=== PATIENT | male | born 1960 | race Caucasian/White ===

== ENCOUNTER 2019-06-15 16:11 | Inpatient (IN) | payer OTHER ==
[2019-06-15] MEDS ORDERED: Albuterol 8 GM Inhaler INH ONE (16:56)
--- NOTE | 2019-06-15 17:02 | EDM.PDOC ---
ED HPI GENERAL MEDICAL PROBLEM - General Chief Complaint: Respiratory Problem Stated Complaint: SOB Time Seen by Provider: 06/15/19 16:58 Source of Information: Reports: Patient History Limitations: Reports: No Limitations - History of Present Illness INITIAL COMMENTS - FREE TEXT/NARRATIVE: Presents with cough and SOB x 1 week. He has been sleeping in a recliner x 1 week, he is unable lay flat due to SOB. Denies any prior significant medical history. He is a non-smoker. Denies fever, chest pain, or known exposure to COVID-19. He had a Telemedicine appointment on 06/12/19 and was prescribed Doxycycline, Guaifenesin, and Flonase w/o improvement. He had similar symptoms in April 2019, resolved, then recurred @1 week ago. Duration: Week(s): (1) Severity: Moderate Worsens with: Reports: Other (exertion) - Related Data Allergies Allergy/AdvReac Type Severity Reaction Status Date / Time No Known Allergies Allergy Verified 06/15/19 16:45 Past Medical History - Past Health History Medical/Surgical History: Denies Medical/Surgical History Social & Family History - Tobacco Use Smoking Status *Q: Never Smoker ED ROS GENERAL - Review of Systems Review Of Systems: Comprehensive ROS is negative, except as noted in HPI. Respiratory: Reports: Shortness of Breath Cardiovascular: Reports: Orthopnea, PND ED EXAM, GENERAL - Physical Exam Exam: See Below Exam Limited By: No Limitations General Appearance: Alert, WD/WN, No Apparent Distress Throat/Mouth: No Airway Compromise Head: Atraumatic, Normocephalic Neck: Full Range of Motion Respiratory/Chest: No Respiratory Distress, Lungs Clear, Normal Breath Sounds Cardiovascular: Regular Rate, Rhythm, No Murmur Extremities: Normal Range of Motion, Non-Tender, Pedal Edema Neurological: Alert, Normal Cognition Psychiatric: Normal Affect, Normal Mood Skin Exam: Warm, Dry, Intact EKG INTERPRETATION EKG Date: 06/15/19 Time: 17:17 Rhythm: NSR Rate (Beats/Min): 87 [place]: Normal P-Wave: Present QRS: Normal ST-T: Normal QT: Normal Course - Vital Signs Last Recorded V/S: Last Vital Signs Temp 36.5 C 06/15/19 16:26 Pulse 96 06/15/19 16:26 Resp 18 06/15/19 16:26 BP 137/82 06/15/19 16:26 Pulse Ox 93 L 06/15/19 16:26 - Orders/Labs/Meds Orders: Active Orders 24 hr Category Date Time Status EKG Documentation Completion [RC] ASDIRECTED Care 06/15/19 16:55 Active RT Post Treatment Assessment [RC] Click to Edit Care 06/15/19 16:57 Active CXR [Chest 1V Frontal] [CR] Stat Exams 06/15/19 16:58 Taken CORONAVIRUS COVID-19, ZURDO Stat Lab 06/15/19 17:08 Received INPATIENT Stat Lab 06/15/19 17:08 Received Sodium Chloride 0.9% [Saline Flush] Med 06/15/19 16:56 Active 10 ml FLUSH ASDIRECTED PRN Isolation [COMM] Routine Oth 06/15/19 16:54 Ordered Saline Lock Insert [OM.PC] Routine Oth 06/15/19 16:56 Ordered EKG 12 Lead [EK] Stat Ther 06/15/19 16:54 Ordered Medication Orders Sodium Chloride (Saline Flush) 10 ml FLUSH ASDIRECTED PRN PRN Reason: Keep Vein Open Labs: Laboratory Tests 06/15/19 06/15/19 06/15/19 Range/Units 17:05 17:05 17:05 WBC 9.2 (4.5-12.0) X10-3/uL RBC 5.32 (4.30-5.75) x10(6)uL Hgb 14.2 (13.5-17.8) g/dL Hct 43.4 (30.0-51.3) % MCV 81.7 (80-96) fL MCH 26.7 L (27.7-33.6) pg MCHC 32.7 (32.2-35.4) g/dL RDW 14.6 (11.5-15.5) % Plt Count 239 (125-369) X10(3)uL MPV 8.8 (7.4-10.4) fL Neut % (Auto) 77.2 (46-82) % Lymph % (Auto) 14.7 (13-37) % [place] % (Auto) 5.9 (4-12) % Eos % (Auto) 2 (1.0-5.0) % Baso % (Auto) 1 (0-2) % Neut # (Auto) 7.2 (1.6-8.3) # Lymph # (Auto) 1.3 (0.6-5.0) # [place] # (Auto) 0.5 (0.0-1.3) # Eos # (Auto) 0.1 (0.0-0.8) # Baso # (Auto) 0.1 (0.0-0.2) # PT 10.9 (9.0-11.1) sec INR 1.01 (1.00-1.24) APTT 26.5 (24.4-33.2) SECONDS D-Dimer, Quantitative 0.45 (0.0-0.59) mg/LFEU Sodium 141 (135-145) mmol/L Potassium 4.1 (3.5-5.3) mmol/L Chloride 103 (100-110) mmol/L Carbon Dioxide 31 (21-32) mmol/L BUN 18 (7-18) mg/dL Creatinine 1.0 (0.70-1.30) mg/dL Est Cr Clr Drug Dosing TNP Estimated GFR (MDRD) > 60 (>60) BUN/Creatinine Ratio 18.0 (9-20) Glucose 101 (80-116) mg/dL Calcium 8.5 L (8.6-10.2) mg/dL Total Bilirubin 0.6 (0.1-1.3) mg/dL AST 32 H (5-25) IU/L ALT 58 H (12-36) U/L Alkaline Phosphatase 101 (56-112) IU/L Troponin I (4.0-60.3) pg/mL NT-Pro-B Natriuret Pep (<=125) pg/mL Total Protein 7.4 (6.0-8.0) g/dL Albumin 3.9 (3.2-4.6) g/dL Globulin 3.5 g/dL Albumin/Globulin Ratio 1.1 TSH, Ultra Sensitive (0.36-3.74) IU/mL 06/15/19 06/15/19 Range/Units 17:05 17:05 WBC (4.5-12.0) X10-3/uL RBC (4.30-5.75) x10(6)uL Hgb (13.5-17.8) g/dL Hct (30.0-51.3) % MCV (80-96) fL MCH (27.7-33.6) pg MCHC (32.2-35.4) g/dL RDW (11.5-15.5) % Plt Count (125-369) X10(3)uL MPV (7.4-10.4) fL Neut % (Auto) (46-82) % Lymph % (Auto) (13-37) % [place] % (Auto) (4-12) % Eos % (Auto) (1.0-5.0) % Baso % (Auto) (0-2) % Neut # (Auto) (1.6-8.3) # Lymph # (Auto) (0.6-5.0) # [place] # (Auto) (0.0-1.3) # Eos # (Auto) (0.0-0.8) # Baso # (Auto) (0.0-0.2) # PT (9.0-11.1) sec INR (1.00-1.24) APTT (24.4-33.2) SECONDS D-Dimer, Quantitative (0.0-0.59) mg/LFEU Sodium (135-145) mmol/L Potassium (3.5-5.3) mmol/L Chloride (100-110) mmol/L Carbon Dioxide (21-32) mmol/L BUN (7-18) mg/dL Creatinine (0.70-1.30) mg/dL Est Cr Clr Drug Dosing Estimated GFR (MDRD) (>60) BUN/Creatinine Ratio (9-20) Glucose (80-116) mg/dL Calcium (8.6-10.2) mg/dL Total Bilirubin (0.1-1.3) mg/dL AST (5-25) IU/L ALT (12-36) U/L Alkaline Phosphatase (56-112) IU/L Troponin I 18.4 (4.0-60.3) pg/mL NT-Pro-B Natriuret Pep 627 H (<=125) pg/mL Total Protein (6.0-8.0) g/dL Albumin (3.2-4.6) g/dL Globulin g/dL Albumin/Globulin Ratio TSH, Ultra Sensitive 1.15 (0.36-3.74) IU/mL Meds: Medications Generic Name Dose Route Start Last Admin Trade Name Freq PRN Reason Stop Dose Admin Sodium Chloride 10 ml 06/15/19 16:56 Saline Flush FLUSH ASDIRECTED PRN Keep Vein Open Discontinued Medications Generic Name Dose Route Start Last Admin Trade Name Freq PRN Reason Stop Dose Admin Albuterol 0 gm 06/15/19 16:56 06/15/19 17:45 Ventolin Hfa INH 06/15/19 16:57 2 puff ONETIME ONE Administration Furosemide 40 mg 06/15/19 18:00 Lasix IVPUSH 06/15/19 18:01 NOW ONE - Radiology Interpretation Free Text/Narrative:: CXR (AP portable): Allowing for the the patient body habitus and technique, the lungs are probably clear. Enlargement of the cardiomediastinal silhouette. Elevation of the left hemidiaphragm. (Dr. Joe Hudson) - Re-Assessments/Exams Free Text/Narrative Re-Assessment/Exam: 06/15/19 18:20 Sa02 91-92% RA at rest. Departure - Departure Time of Disposition: 18:19 Disposition: Admitted As Inpatient 64 Condition: Fair Clinical Impression: New onset of congestive heart failure - Discharge Information *PRESCRIPTION DRUG MONITORING PROGRAM REVIEWED*: No *COPY OF PRESCRIPTION DRUG MONITORING REPORT IN PATIENT JERAMIE: Not Applicable Referrals: Nancy Cristina BLADE BONER [Primary Care Provider] - Forms: ED Department Discharge Sepsis Event Note - Evaluation Sepsis Screening Result: No Definite Risk - Focused Exam Vital Signs: Vital Signs Temp Pulse Resp BP Pulse Ox 06/15/19 16:26 36.5 C 96 18 137/82 93 L Date Exam was Performed: 06/15/19 Time Exam was Performed: 18:14 - My Orders Last 24 Hours: My Active Orders 06/15/19 16:54 Isolation [COMM] Routine EKG 12 Lead [EK] Stat 06/15/19 16:55 EKG Documentation Completion [RC] ASDIRECTED 06/15/19 16:56 Sodium Chloride 0.9% [Saline Flush] 10 ml FLUSH ASDIRECTED PRN Saline Lock Insert [OM.PC] Routine 06/15/19 16:57 RT Post Treatment Assessment [RC] Click to Edit 06/15/19 16:58 CXR [Chest 1V Frontal] [CR] Stat 06/15/19 17:08 CORONAVIRUS COVID-19, ZURDO Stat INPATIENT Stat - Assessment/Plan Last 24 Hours: My Active Orders 06/15/19 16:54 Isolation [COMM] Routine EKG 12 Lead [EK] Stat 06/15/19 16:55 EKG Documentation Completion [RC] ASDIRECTED 06/15/19 16:56 Sodium Chloride 0.9% [Saline Flush] 10 ml FLUSH ASDIRECTED PRN Saline Lock Insert [OM.PC] Routine 06/15/19 16:57 RT Post Treatment Assessment [RC] Click to Edit 06/15/19 16:58 CXR [Chest 1V Frontal] [CR] Stat 06/15/19 17:08 CORONAVIRUS COVID-19, ZURDO Stat INPATIENT Stat
[2019-06-15] MEDS ORDERED: Furosemide 40 MG/4 ML VIAL IVPUSH ONE (18:00)
[2019-06-15] MEDS: Sodium Chloride 0.9% 10 ML Syringe FLUSH PRN (18:13)
[2019-06-15] MEDS ORDERED: Albuterol 8 GM Inhaler INH PRN (18:51)
[2019-06-15] MEDS: Enoxaparin 40 MG/0.4 ML Syringe SUBCUT SCH (20:02)
[2019-06-15] MEDS: Lisinopril 2.5 MG Tab PO SCH (21:02)
[2019-06-16] MEDS ORDERED: Furosemide 40 MG/4 ML VIAL IVPUSH SCH (09:00)
[2019-06-16] MEDS: Sodium Chloride 0.9% 10 ML Syringe FLUSH PRN ×2 (09:24→18:26)
[2019-06-16] MEDS: Lisinopril 2.5 MG Tab PO SCH (09:24)
--- NOTE | 2019-06-16 09:26 | PCM.HP.2 ---
H&P History of Present Illness - General Date of Service: 06/16/19 Admit Problem/Dx: Admission Diagnosis/Problem Admission Diagnosis/Problem CHF, Congestive heart failure Source of Information: Patient History Limitations: Reports: No Limitations - History of Present Illness Initial Comments - Free Text/Narative: This is a 59-year-old male patient that has over week history of shortness of breath. He says when he exerts himself and lays down flat he gets short of breath. He states he's had night sweats for least 10 months. He said in March he had a upper respiratory tract infection that is all on its own. He says occasionally he coughs up a little bit of green sputum. He denies fevers, chills, nasal congestion, sore throat, ear pain, body aches him a chest pain. He says he does have a little wheezing in his lungs. He also states she's had some leg swelling bilateral. He denies chest pain, nausea. He denies family history of heart disease. He denies history of smoking, hypertension, diabetes or previous heart issues. He states he does have a cough and had a virtual visit at [facility] 4 days ago was placed on doxycycline and Robitussin with codeine. Ever since he's been on a cough medicine his cough is much improved. - Related Data Allergies/Adverse Reactions: Allergies Allergy/AdvReac Type Severity Reaction Status Date / Time No Known Allergies Allergy Verified 06/15/19 16:45 Home Medications: Home Meds Codeine Phosphate/Guaifenesin [Guaiatussin AC] 5 ml PO TID PRN 06/15/19 [History ] Doxycycline Monohydrate 100 mg PO BID 06/15/19 [History] Fluticasone Propionate [Flonase] 2 spray NASBOTH DAILY 06/15/19 [History] Past Medical History - Past Health History Medical/Surgical History: Denies Medical/Surgical History Musculoskeletal History: Reports: Other (See Below) Other Musculoskeletal History: fixation of a ripped lt bicep. Dermatologic History: Reports: Cellulitis Other Dermatologic History: left lower leg (treated) - Past Surgical History HEENT Surgical History: Reports: Tonsillectomy Social & Family History - Family History Family Medical History: Noncontributory - Tobacco Use Smoking Status *Q: Never Smoker Second Hand Smoke Exposure: No - Caffeine Use Caffeine Use: Reports: Soda Other Caffeine Use: Diet coke occassionally. - Recreational Drug Use Recreational Drug Use: No H&P Review of Systems - Review of Systems: Review Of Systems: See Below General: Reports: Diaphoresis HEENT: Reports: No Symptoms Pulmonary: Reports: Shortness of Breath, Wheezing, Cough, Sputum Cardiovascular: Reports: Dyspnea on Exertion, Edema Gastrointestinal: Reports: No Symptoms Genitourinary: Reports: No Symptoms Musculoskeletal: Reports: No Symptoms Skin: Reports: No Symptoms Psychiatric: Reports: No Symptoms Hematologic/Lymphatic: Reports: No Symptoms Immunologic: Reports: No Symptoms Exam - Exam Exam: See Below - Vital Signs Vital Signs: Last Vital Signs Temp 97 F 06/16/19 00:00 Pulse 81 06/16/19 00:00 Resp 20 06/16/19 00:00 BP 133/69 06/16/19 00:00 Pulse Ox 94 L 06/16/19 00:00 Weight: 314 lb 7 oz - Exam General: Alert, Oriented HEENT: Hearing Intact, Mucosa Moist & Gray, Posterior Pharynx Clear, TMs Clear Neck: Supple, Trachea Midline Lungs: Clear to Auscultation, Normal Respiratory Effort. No: Crackles, Rales, Rhonchi Cardiovascular: Regular Rate, Regular Rhythm. No: Irregular Rhythm, Systolic Murmur, Diastolic Murmur GI/Abdominal Exam: Normal Bowel Sounds, Soft, Non-Tender, No Organomegaly, No Distention, No Abnormal Bruit, No Mass Back Exam: Normal Inspection, Full Range of Motion Extremities: Non-Tender, Pedal Edema Skin: Warm, Dry, Intact Neurological: Normal Speech, Normal Tone Psychiatric: Alert, Normal Affect, Normal Mood - Patient Data Lab Results Last 24 hrs: Laboratory Results - last 24 hr 06/15/19 06/15/19 06/15/19 Range/Units 17:05 17:05 17:05 WBC 9.2 (4.5-12.0) X10-3/uL RBC 5.32 (4.30-5.75) x10(6)uL Hgb 14.2 (13.5-17.8) g/dL Hct 43.4 (30.0-51.3) % MCV 81.7 (80-96) fL MCH 26.7 L (27.7-33.6) pg MCHC 32.7 (32.2-35.4) g/dL RDW 14.6 (11.5-15.5) % Plt Count 239 (125-369) X10(3)uL MPV 8.8 (7.4-10.4) fL Neut % (Auto) 77.2 (46-82) % Lymph % (Auto) 14.7 (13-37) % [place] % (Auto) 5.9 (4-12) % Eos % (Auto) 2 (1.0-5.0) % Baso % (Auto) 1 (0-2) % Neut # (Auto) 7.2 (1.6-8.3) # Lymph # (Auto) 1.3 (0.6-5.0) # [place] # (Auto) 0.5 (0.0-1.3) # Eos # (Auto) 0.1 (0.0-0.8) # Baso # (Auto) 0.1 (0.0-0.2) # PT 10.9 (9.0-11.1) sec INR 1.01 (1.00-1.24) APTT 26.5 (24.4-33.2) SECONDS D-Dimer, Quantitative 0.45 (0.0-0.59) mg/LFEU Sodium 141 (135-145) mmol/L Potassium 4.1 (3.5-5.3) mmol/L Chloride 103 (100-110) mmol/L Carbon Dioxide 31 (21-32) mmol/L BUN 18 (7-18) mg/dL Creatinine 1.0 (0.70-1.30) mg/dL Est Cr Clr Drug Dosing TNP Estimated GFR (MDRD) > 60 (>60) BUN/Creatinine Ratio 18.0 (9-20) Glucose 101 (80-116) mg/dL Calcium 8.5 L (8.6-10.2) mg/dL Magnesium (1.8-2.5) mg/dL Total Bilirubin 0.6 (0.1-1.3) mg/dL AST 32 H (5-25) IU/L ALT 58 H (12-36) U/L Alkaline Phosphatase 101 (56-112) IU/L Troponin I (4.0-60.3) pg/mL NT-Pro-B Natriuret Pep (<=125) pg/mL Total Protein 7.4 (6.0-8.0) g/dL Albumin 3.9 (3.2-4.6) g/dL Globulin 3.5 g/dL Albumin/Globulin Ratio 1.1 TSH, Ultra Sensitive (0.36-3.74) IU/mL Urine Opiates Screen (NEGATIVE) Ur Oxycodone Screen (NEGATIVE) Ur Propoxyphene Screen (NEGATIVE) Ur Barbituates Screen (NEGATIVE) Ur Tricyclics Screen (NEGATIVE) Ur Phencyclidine Scrn (NEGATIVE) Ur Amphetamine Screen (NEGATIVE) Urine MDMA Screen (NEGATIVE) U Benzodiazepines Scrn (NEGATIVE) U Cocaine Metab Screen (NEGATIVE) U Marijuana (THC) Screen (NEGATIVE) 06/15/19 06/15/19 06/15/19 Range/Units 17:05 17:05 19:42 WBC (4.5-12.0) X10-3/uL RBC (4.30-5.75) x10(6)uL Hgb (13.5-17.8) g/dL Hct (30.0-51.3) % MCV (80-96) fL MCH (27.7-33.6) pg MCHC (32.2-35.4) g/dL RDW (11.5-15.5) % Plt Count (125-369) X10(3)uL MPV (7.4-10.4) fL Neut % (Auto) (46-82) % Lymph % (Auto) (13-37) % [place] % (Auto) (4-12) % Eos % (Auto) (1.0-5.0) % Baso % (Auto) (0-2) % Neut # (Auto) (1.6-8.3) # Lymph # (Auto) (0.6-5.0) # [place] # (Auto) (0.0-1.3) # Eos # (Auto) (0.0-0.8) # Baso # (Auto) (0.0-0.2) # PT (9.0-11.1) sec INR (1.00-1.24) APTT (24.4-33.2) SECONDS D-Dimer, Quantitative (0.0-0.59) mg/LFEU Sodium (135-145) mmol/L Potassium (3.5-5.3) mmol/L Chloride (100-110) mmol/L Carbon Dioxide (21-32) mmol/L BUN (7-18) mg/dL Creatinine (0.70-1.30) mg/dL Est Cr Clr Drug Dosing Estimated GFR (MDRD) (>60) BUN/Creatinine Ratio (9-20) Glucose (80-116) mg/dL Calcium (8.6-10.2) mg/dL Magnesium (1.8-2.5) mg/dL Total Bilirubin (0.1-1.3) mg/dL AST (5-25) IU/L ALT (12-36) U/L Alkaline Phosphatase (56-112) IU/L Troponin I 18.4 (4.0-60.3) pg/mL NT-Pro-B Natriuret Pep 627 H (<=125) pg/mL Total Protein (6.0-8.0) g/dL Albumin (3.2-4.6) g/dL Globulin g/dL Albumin/Globulin Ratio TSH, Ultra Sensitive 1.15 (0.36-3.74) IU/mL Urine Opiates Screen Negative (NEGATIVE) Ur Oxycodone Screen Negative (NEGATIVE) Ur Propoxyphene Screen Negative (NEGATIVE) Ur Barbituates Screen Negative (NEGATIVE) Ur Tricyclics Screen Negative (NEGATIVE) Ur Phencyclidine Scrn Negative (NEGATIVE) Ur Amphetamine Screen Negative (NEGATIVE) Urine MDMA Screen Negative (NEGATIVE) U Benzodiazepines Scrn Negative (NEGATIVE) U Cocaine Metab Screen Negative (NEGATIVE) U Marijuana (THC) Screen Negative (NEGATIVE) 06/16/19 06/16/19 Range/Units 06:30 06:30 WBC 7.5 (4.5-12.0) X10-3/uL RBC 5.43 (4.30-5.75) x10(6)uL Hgb 14.5 (13.5-17.8) g/dL Hct 44.5 (30.0-51.3) % MCV 81.9 (80-96) fL MCH 26.7 L (27.7-33.6) pg MCHC 32.6 (32.2-35.4) g/dL RDW 14.7 (11.5-15.5) % Plt Count 258 (125-369) X10(3)uL MPV 8.6 (7.4-10.4) fL Neut % (Auto) 69.3 (46-82) % Lymph % (Auto) 19.6 (13-37) % [place] % (Auto) 7.0 (4-12) % Eos % (Auto) 2 (1.0-5.0) % Baso % (Auto) 2 (0-2) % Neut # (Auto) 5.2 (1.6-8.3) # Lymph # (Auto) 1.5 (0.6-5.0) # [place] # (Auto) 0.5 (0.0-1.3) # Eos # (Auto) 0.2 (0.0-0.8) # Baso # (Auto) 0.1 (0.0-0.2) # PT (9.0-11.1) sec INR (1.00-1.24) APTT (24.4-33.2) SECONDS D-Dimer, Quantitative (0.0-0.59) mg/LFEU Sodium 141 (135-145) mmol/L Potassium 4.3 (3.5-5.3) mmol/L Chloride 102 (100-110) mmol/L Carbon Dioxide 31 (21-32) mmol/L BUN 15 (7-18) mg/dL Creatinine 1.0 (0.70-1.30) mg/dL Est Cr Clr Drug Dosing TNP Estimated GFR (MDRD) > 60 (>60) BUN/Creatinine Ratio 15.0 (9-20) Glucose 115 (80-116) mg/dL Calcium 8.4 L (8.6-10.2) mg/dL Magnesium 2.4 (1.8-2.5) mg/dL Total Bilirubin (0.1-1.3) mg/dL AST (5-25) IU/L ALT (12-36) U/L Alkaline Phosphatase (56-112) IU/L Troponin I (4.0-60.3) pg/mL NT-Pro-B Natriuret Pep (<=125) pg/mL Total Protein (6.0-8.0) g/dL Albumin (3.2-4.6) g/dL Globulin g/dL Albumin/Globulin Ratio TSH, Ultra Sensitive (0.36-3.74) IU/mL Urine Opiates Screen (NEGATIVE) Ur Oxycodone Screen (NEGATIVE) Ur Propoxyphene Screen (NEGATIVE) Ur Barbituates Screen (NEGATIVE) Ur Tricyclics Screen (NEGATIVE) Ur Phencyclidine Scrn (NEGATIVE) Ur Amphetamine Screen (NEGATIVE) Urine MDMA Screen (NEGATIVE) U Benzodiazepines Scrn (NEGATIVE) U Cocaine Metab Screen (NEGATIVE) U Marijuana (THC) Screen (NEGATIVE) Result Diagrams: 06/16/19 06:30 06/16/19 06:30 Pato Results Last 24 hrs: Microbiology 06/15/19 17:08 Influenza Type A Antigen Screen - Final Nasopharyngeal Swab NEGATIVE INFLUENZA A VIRUS AG REFERENCE RANGE: NEGATIVE Influenza Type B Antigen Screen - Final NEGATIVE INFLUENZA B VIRUS AG REFERENCE RANGE: NEGATIVE EKG INTERPRETATION EKG Date: 06/15/19 EKG Interpretation Comments: Normal Sinus rhythm Sepsis Event Note - Evaluation Sepsis Screening Result: No Definite Risk - Focused Exam Vital Signs: Vital Signs Temp Pulse Resp BP Pulse Ox 06/16/19 00:00 97 F 81 20 133/69 94 L Date Exam was Performed: 06/16/19 Time Exam was Performed: 09:21 - Problem List (1) Cardiomegaly SNOMED Code(s): 2789619 ICD Code: I51.7 - CARDIOMEGALY Status: Acute Current Visit: Yes (2) Obesity SNOMED Code(s): 802299010, 923027477 ICD Code: E66.9 - OBESITY, UNSPECIFIED Status: Acute Current Visit: Yes (3) Palliative care status SNOMED Code(s): 968297632 ICD Code: Z51.5 - ENCOUNTER FOR PALLIATIVE CARE Status: Acute Current Visit: Yes (4) New onset of congestive heart failure SNOMED Code(s): 61840358 ICD Code: I50.9 - HEART FAILURE, UNSPECIFIED Status: Acute Current Visit : Yes Problem List Initiated/Reviewed/Updated: Yes Orders Last 24hrs: Active Orders 24 hr Category Date Time Status Admission Status [Patient Status] [ADT] Routine ADT 06/15/19 18:21 Active Ambulate [RC] ASDIRECTED Care 06/15/19 18:27 Active Ambulate [RC] PER UNIT ROUTINE Care 06/15/19 18:28 Active Cardiac Monitoring [RC] CONTINUOUS Care 06/15/19 18:28 Active EKG Documentation Completion [RC] ASDIRECTED Care 06/15/19 16:55 Active Height and Weight [RC] 0600 Care 06/15/19 18:27 Active Intake and Output [RC] 06,14,22 Care 06/15/19 18:28 Active May Shower [RC] ASDIRECTED Care 06/15/19 18:27 Active Notify Provider Vital Signs [RC] ASDIRECTED Care 06/15/19 18:28 Active Oxygen Therapy [RC] PRN Care 06/15/19 18:27 Active Pulse Oximetry [RC] CONTINUOUS Care 06/15/19 18:28 Active RT Post Treatment Assessment [RC] Click to Edit Care 06/15/19 16:57 Active VTE/DVT Education [RC] Per Unit Routine Care 06/15/19 18:27 Active Vital Signs [RC] QSHIFT Care 06/15/19 18:27 Active Heart Healthy Diet [DIET] Diet 06/16/19 Breakfast Active CXR [Chest 1V Frontal] [CR] Stat Exams 06/15/19 16:58 Taken CORONAVIRUS COVID-19, ZURDO Stat Lab 06/15/19 17:08 Received INPATIENT Stat Lab 06/15/19 17:08 Received Albuterol [Ventolin HFA] Med 06/15/19 18:51 Active See Dose Instructions INH Q4H PRN Enoxaparin [Lovenox] Med 06/15/19 18:30 Active 40 mg SUBCUT DAILY@1800 Furosemide [Lasix] Med 06/16/19 09:00 Active 40 mg IVPUSH DAILY Sodium Chloride 0.9% [Saline Flush] Med 06/15/19 16:56 Active 10 ml FLUSH ASDIRECTED PRN lisinopriL [Prinivil] Med 06/15/19 18:45 Active 2.5 mg PO DAILY Isolation [COMM] Routine Oth 06/15/19 16:54 Ordered Saline Lock Insert [OM.PC] Routine Oth 06/15/19 16:56 Ordered Resuscitation Status Routine Resus Stat 06/15/19 18:27 Ordered EKG 12 Lead [EK] Stat Ther 06/15/19 16:54 Ordered Medication Orders Albuterol (Ventolin Hfa) 0 gm INH Q4H PRN PRN Reason: Shortness of Breath Enoxaparin Sodium (Lovenox) 40 mg SUBCUT DAILY@1800 [facility] Last Admin: 06/15/19 20:02 Dose: 40 mg Furosemide (Lasix) 40 mg IVPUSH DAILY [facility] Lisinopril (Prinivil) 2.5 mg PO DAILY [facility] Last Admin: 06/15/19 21:02 Dose: 2.5 mg Sodium Chloride (Saline Flush) 10 ml FLUSH ASDIRECTED PRN PRN Reason: Keep Vein Open Last Admin: 06/15/19 18:13 Dose: 10 ml Assessment/Plan Comment:: 1. Admit inpatient 2. Telemetry 3. He is given IV Lasix and will continue this. 4. Lisinopril started and I will increase the dose. 5. Up ad urbano. 6. O2 to keep sats greater than 90% 7. Low-salt diet 8. Repeat EKG, troponin, BNP and 2 views of the chest. 9. Echocardiogram 10. Full code 11. Lovenox for VTE prophylaxis. - Mortality Measure Prognosis:: Good
[2019-06-16] MEDS ORDERED: Acetaminophen 325 MG Tab PO PRN (13:57)
[2019-06-16] MEDS ORDERED: Codeine/guaiFENesin 10-100 MG/5 ML Syrup 5 ML Cup PO PRN (14:53)
[2019-06-16] MEDS: Furosemide 40 MG Tab PO SCH (15:52)
[2019-06-16] MEDS ORDERED: Furosemide 20 MG/2 ML VIAL IVPUSH ONE (17:26)
[2019-06-16] MEDS ORDERED: Azithromycin 500 MG Tab PO ONE (17:27)
[2019-06-16] MEDS: Enoxaparin 40 MG/0.4 ML Syringe SUBCUT SCH (18:26)
[2019-06-16] MEDS: Fluticasone Propionate Nasal Spray 16 GM Bottle NASBOTH SCH (22:02)
[2019-06-16] MEDS: Doxycycline 100 MG Tab PO SCH (22:04)
[2019-06-17] MEDS: Furosemide 40 MG Tab PO SCH (07:50)
--- NOTE | 2019-06-17 08:59 | PCM.PN ---
- General Info Date of Service: 06/17/19 Admission Dx/Problem (Free Text): Patient states that he still has the phlegm in the back of his throat. Try some Flonase last night and he was able to cough up a little bit which did help. His leg swelling is down. He didn't sleep that well last night because of the bed. He said a little shortness of breath when he first laid down but that improved. He denies chest pain, wheezing, fevers or chills. - Patient Data Vitals - Most Recent: Last Vital Signs Temp 98.0 F 06/17/19 07:43 Pulse 86 06/17/19 07:43 Resp 16 06/17/19 07:43 BP 126/67 06/17/19 07:43 Pulse Ox 95 06/17/19 07:43 Weight - Most Recent: 317 lb I&O - Last 24 Hours: Intake & Output 06/16/19 06/17/19 06/17/19 22:59 06:59 14:59 Intake Total 1680 Output Total 1400 500 Balance 280 -500 Lab Results Last 24 Hours: Laboratory Results - last 24 hr 06/16/19 06/17/19 06/17/19 Range/Units 06:30 06:30 06:30 Sodium 140 (135-145) mmol/L Potassium 4.0 (3.5-5.3) mmol/L Chloride 99 L (100-110) mmol/L Carbon Dioxide 36 H (21-32) mmol/L BUN 19 H (7-18) mg/dL Creatinine 1.0 (0.70-1.30) mg/dL Est Cr Clr Drug Dosing 85.14 mL/min Estimated GFR (MDRD) > 60 (>60) BUN/Creatinine Ratio 19.0 (9-20) Glucose 107 (80-116) mg/dL Calcium 8.6 (8.6-10.2) mg/dL Troponin I 15.8 (4.0-60.3) pg/mL NT-Pro-B Natriuret Pep 615 H 172 H (<=125) pg/mL Med Orders - Current: Current Medications Acetaminophen (Tylenol) 650 mg PO Q4H PRN PRN Reason: Pain Last Admin: 06/16/19 14:13 Dose: 650 mg Albuterol (Ventolin Hfa) 0 gm INH Q4H PRN PRN Reason: Shortness of Breath Last Admin: 06/16/19 15:52 Dose: 2 puff Doxycycline Hyclate (Vibra-Tabs) 100 mg PO BID [facility] Last Admin: 06/16/19 22:04 Dose: 100 mg Enoxaparin Sodium (Lovenox) 40 mg SUBCUT DAILY@1800 [facility] Last Admin: 06/16/19 18:26 Dose: 40 mg Fluticasone Propionate (Flonase) 0 gm NASBOTH DAILY [facility] Last Admin: 06/16/19 22:02 Dose: 2 sprays(dnu) Furosemide (Lasix) 40 mg PO BIDDIURETIC [facility] Last Admin: 06/17/19 07:50 Dose: 40 mg Guaifenesin/Codeine Phosphate (Robitussin Ac) 5 ml PO Q4H PRN PRN Reason: Cough Last Admin: 06/16/19 15:50 Dose: 5 ml Lisinopril (Prinivil) 5 mg PO DAILY [facility] Sodium Chloride (Saline Flush) 10 ml FLUSH ASDIRECTED PRN PRN Reason: Keep Vein Open Last Admin: 06/16/19 18:26 Dose: 10 ml Discontinued Medications Albuterol (Ventolin Hfa) 0 gm INH ONETIME ONE Stop: 06/15/19 16:57 Last Admin: 06/15/19 17:45 Dose: 2 puff Azithromycin (Zithromax) 500 mg PO ONETIME ONE Stop: 06/16/19 17:28 Last Admin: 06/16/19 18:26 Dose: 500 mg Furosemide (Lasix) 40 mg IVPUSH NOW ONE Stop: 06/15/19 18:01 Last Admin: 06/15/19 18:10 Dose: 40 mg Furosemide (Lasix) 40 mg IVPUSH DAILY [facility] Last Admin: 06/16/19 09:24 Dose: 40 mg Furosemide (Lasix) 20 mg IVPUSH NOW ONE Stop: 06/16/19 17:27 Last Admin: 06/16/19 18:26 Dose: 20 mg Lisinopril (Prinivil) 2.5 mg PO DAILY [facility] Last Admin: 06/16/19 09:24 Dose: 2.5 mg - Exam General: Alert, Oriented Lungs: Clear to Auscultation, Rub Cardiovascular: Regular Rate, Regular Rhythm, No Murmurs Extremities: No Pedal Edema Sepsis Event Note - Evaluation Sepsis Screening Result: No Definite Risk - Focused Exam Vital Signs: Vital Signs Temp Pulse Resp BP Pulse Ox 06/17/19 07:43 98.0 F 86 16 126/67 95 06/16/19 23:30 97 F 72 20 124/71 94 L Date Exam was Performed: 06/17/19 Time Exam was Performed: 08:57 - Problem List & Annotations (1) Obesity SNOMED Code(s): 244716698, 300191969 Code(s): E66.9 - OBESITY, UNSPECIFIED Status: Acute Current Visit: Yes (2) Palliative care status SNOMED Code(s): 003415506 Code(s): Z51.5 - ENCOUNTER FOR PALLIATIVE CARE Status: Acute Current Visit: Yes (3) New onset of congestive heart failure SNOMED Code(s): 91678389 Code(s): I50.9 - HEART FAILURE, UNSPECIFIED Status: Acute Current Visit: Yes (4) Sinusitis SNOMED Code(s): 07561264 Code(s): J32.9 - CHRONIC SINUSITIS, UNSPECIFIED Status: Acute Current Visit: Yes - Problem List Review Problem List Initiated/Reviewed/Updated: Yes - My Orders Last 24 Hours: My Active Orders 06/16/19 09:29 CXR [Chest 2V] [CR] Routine 06/16/19 09:30 EKG Documentation Completion [RC] ASDIRECTED Echo Comp w Cont [US] Routine EKG 12 Lead [EK] Routine 06/16/19 13:57 Acetaminophen [Tylenol] 650 mg PO Q4H PRN 06/16/19 14:53 Codeine/guaiFENesin [Robitussin AC] 5 ml PO Q4H PRN 06/16/19 16:00 Furosemide [Lasix] 40 mg PO BIDDIURETIC 06/16/19 20:45 Fluticasone Propionate [Flonase] See Dose Instructions NASBOTH DAILY 06/16/19 21:00 Doxycycline [Vibra-Tabs] 100 mg PO BID 06/17/19 09:00 lisinopriL [Prinivil] 5 mg PO DAILY - Plan Plan:: 1. Discharge to home on furosemide 40 mg once a day. Discussed using an zoie but he'll defer for now. 2. Augmentin 5 mg 3 times a day 10 days for the sinus infection. The patient already has Flonase at home he states he used 2 sprays each shots once a day. 3. He should self isolate until the Covid 19 test comes back. 4. Not able to get an echo until this Covid test is negative. 5. I will discuss this patient with Dr. Resendiz for a continue workup to get definitive diagnosis.
[2019-06-17] MEDS ORDERED: Lisinopril 5 MG Tab PO SCH (09:00)
--- NOTE | 2019-06-17 09:08 | PCM.DCSUM1 ---
Discharge Summary - Hospital Course Free Text/Narrative:: Hospital course-patient had a Covid 19 tests in the ER. So he was isolated. He and his state that [place] exposures [place]. He was given IV Lasix 2 and had a very good diuresis. His oxygen was on 80% and sort up to the mid 90s after the Lasix. His troponin 2 is negative and EKG showed no ST abnormalities. First chest x-ray was read as no CHF or pneumonia. Repeated two-view said that could be little pleural effusion on the basis or just thickening but no pneumonia. Patient was able to get off oxygen. Patient never had any chest pain was here. Did have some leg swelling that improved. I ordered an echocardiogram but they would not do it until this Covid test is negative. He was started some Lasix and lisinopril. I talk to his about his condition. He also complains of phlegm in his throat. He was put on antibiotic as before and some nasal steroid which seemed to help as he coughed up some phlegm. It appears he has a little CHF but he also could have some sinus infection also. I'm not able to continue the workup. Patient is stable enough to go home. He's reluctant to do the ASHTYN inhibitor so I'll put on Lasix 40 mg a day, low-salt diet, Augmentin, nasal spray and he has some albuterol that we'll send home with him. Robitussin with codeine for any coughing. I will try to talk to Dr. Resendiz to continue this workup. He'll need a echocardiogram which she can either do here at the hospital or over at [facility]. He should self isolate until this Covid 19 tests comes back negative. Brief History: This is a 59-year-old male patient that has over week history of shortness of breath. He says when he exerts himself and lays down flat he gets short of breath. He states he's had night sweats for least 10 months. He said in March he had a upper respiratory tract infection that is all on its own. He says occasionally he coughs up a little bit of green sputum. He denies fevers , chills, nasal congestion, sore throat, ear pain, body aches him a chest pain. He says he does have a little wheezing in his lungs. He also states she's had some leg swelling bilateral. He denies chest pain, nausea. He denies family history of heart disease. He denies history of smoking, hypertension, diabetes or previous heart issues. He states he does have a cough and had a virtual visit at [facility] 4 days ago was placed on doxycycline and Robitussin with codeine. Ever since he's been on a cough medicine his cough is much improved. Diagnosis: Stroke: No - Discharge Data Discharge Date: 06/17/19 Discharge Disposition: Home, Self-Care 01 Condition: Stable - Referral to Home Health Primary Care Physician: Nancy Cristina NP - Discharge Diagnosis/Problem(s) (1) Obesity SNOMED Code(s): 355934045, 716640131 ICD Code: E66.9 - OBESITY, UNSPECIFIED Status: Acute Current Visit: Yes (2) Palliative care status SNOMED Code(s): 051204567 ICD Code: Z51.5 - ENCOUNTER FOR PALLIATIVE CARE Status: Acute Current Visit: Yes (3) New onset of congestive heart failure SNOMED Code(s): 31797927 ICD Code: I50.9 - HEART FAILURE, UNSPECIFIED Status: Acute Current Visit : Yes (4) Sinusitis SNOMED Code(s): 11668225 ICD Code: J32.9 - CHRONIC SINUSITIS, UNSPECIFIED Status: Acute Current Visit: Yes - Patient Instructions Diet: Low Sodium Activity: As Tolerated Driving: May Drive Today Showering/Bathing: May Shower Other/Special Instructions: 1. Recheck with Dr. Resendiz in 4-7 days. 2. Echocardiogram as outpatient after Covid test is negative. - Discharge Plan *PRESCRIPTION DRUG MONITORING PROGRAM REVIEWED*: No *COPY OF PRESCRIPTION DRUG MONITORING REPORT IN PATIENT JERAMIE: Not Applicable Prescriptions/Med Rec: Amoxicillin/Clavulanate K [Augmentin 500-125 MG] 1 tab PO TID #30 tab Furosemide [Lasix] 40 mg PO DAILY #30 tablet Home Medications: Home Meds Codeine Phosphate/Guaifenesin [Guaiatussin AC] 5 ml PO TID PRN 06/15/19 [History ] Fluticasone Propionate [Flonase] 2 spray NASBOTH DAILY 06/15/19 [History] Albuterol [Ventolin HFA] 2 spray INH Q4H PRN #1 inhaler 06/17/19 [Rx] Amoxicillin/Clavulanate K [Augmentin 500-125 MG] 1 tab PO TID #30 tab 06/17/19 [ Rx] Furosemide [Lasix] 40 mg PO DAILY #30 tablet 06/17/19 [Rx] Patient Handouts: Antibiotic Medicine, Adult, Heart Failure, [id number], Fall Prevention in Hospitals, Adult, Preventing Antibiotic Resistance, Venous Thromboembolism Prevention Forms: ED Department Discharge Referrals: Nancy Cristina MANAGED CARE NURSE [Primary Care Provider] - - Discharge Summary/Plan Comment DC Time >30 min.: Yes (Explaining to him and his separately about this condition.) - Patient Data Vitals - Most Recent: Last Vital Signs Temp 98.0 F 06/17/19 07:43 Pulse 86 06/17/19 07:43 Resp 16 06/17/19 07:43 BP 126/67 06/17/19 07:43 Pulse Ox 95 06/17/19 07:43 Weight - Most Recent: 317 lb I&O - Last 24 hours: Intake & Output 06/16/19 06/17/19 06/17/19 22:59 06:59 14:59 Intake Total 1680 Output Total 1400 500 Balance 280 -500 Lab Results - Last 24 hrs: Laboratory Results - last 24 hr 06/16/19 06/17/19 06/17/19 Range/Units 06:30 06:30 06:30 Sodium 140 (135-145) mmol/L Potassium 4.0 (3.5-5.3) mmol/L Chloride 99 L (100-110) mmol/L Carbon Dioxide 36 H (21-32) mmol/L BUN 19 H (7-18) mg/dL Creatinine 1.0 (0.70-1.30) mg/dL Est Cr Clr Drug Dosing 85.14 mL/min Estimated GFR (MDRD) > 60 (>60) BUN/Creatinine Ratio 19.0 (9-20) Glucose 107 (80-116) mg/dL Calcium 8.6 (8.6-10.2) mg/dL Troponin I 15.8 (4.0-60.3) pg/mL NT-Pro-B Natriuret Pep 615 H 172 H (<=125) pg/mL Med Orders - Current: Current Medications Acetaminophen (Tylenol) 650 mg PO Q4H PRN PRN Reason: Pain Last Admin: 06/16/19 14:13 Dose: 650 mg Albuterol (Ventolin Hfa) 0 gm INH Q4H PRN PRN Reason: Shortness of Breath Last Admin: 06/16/19 15:52 Dose: 2 puff Doxycycline Hyclate (Vibra-Tabs) 100 mg PO BID [facility] Last Admin: 06/16/19 22:04 Dose: 100 mg Enoxaparin Sodium (Lovenox) 40 mg SUBCUT DAILY@1800 [facility] Last Admin: 06/16/19 18:26 Dose: 40 mg Fluticasone Propionate (Flonase) 0 gm NASBOTH DAILY [facility] Last Admin: 06/16/19 22:02 Dose: 2 sprays(dnu) Furosemide (Lasix) 40 mg PO BIDDIURETIC [facility] Last Admin: 06/17/19 07:50 Dose: 40 mg Guaifenesin/Codeine Phosphate (Robitussin Ac) 5 ml PO Q4H PRN PRN Reason: Cough Last Admin: 06/16/19 15:50 Dose: 5 ml Lisinopril (Prinivil) 5 mg PO DAILY [facility] Sodium Chloride (Saline Flush) 10 ml FLUSH ASDIRECTED PRN PRN Reason: Keep Vein Open Last Admin: 06/16/19 18:26 Dose: 10 ml Discontinued Medications Albuterol (Ventolin Hfa) 0 gm INH ONETIME ONE Stop: 06/15/19 16:57 Last Admin: 06/15/19 17:45 Dose: 2 puff Azithromycin (Zithromax) 500 mg PO ONETIME ONE Stop: 06/16/19 17:28 Last Admin: 06/16/19 18:26 Dose: 500 mg Furosemide (Lasix) 40 mg IVPUSH NOW ONE Stop: 06/15/19 18:01 Last Admin: 06/15/19 18:10 Dose: 40 mg Furosemide (Lasix) 40 mg IVPUSH DAILY [facility] Last Admin: 06/16/19 09:24 Dose: 40 mg Furosemide (Lasix) 20 mg IVPUSH NOW ONE Stop: 06/16/19 17:27 Last Admin: 06/16/19 18:26 Dose: 20 mg Lisinopril (Prinivil) 2.5 mg PO DAILY [facility] Last Admin: 06/16/19 09:24 Dose: 2.5 mg
[2019-06-17] MEDS: Fluticasone Propionate Nasal Spray 16 GM Bottle NASBOTH SCH (09:47)
[2019-06-17] MEDS: Doxycycline 100 MG Tab PO SCH (09:48)
== END 2019-06-17 13:20 | disposition home or self-care (01) | DRG 292 ==
LOC: FB.ED 16:11 → FB.MS 18:21
PROVIDERS: ADMIT Emergency Medicine; ATTEND Family Medicine
PROC: 8E0ZXY6 Isolation (ICD-10-PCS; principal; 2019-06-15)
DX: I50.9 Heart failure, unspecified (principal); Z68.41 Body mass index [BMI] 40.0-44.9, adult; I51.7 Cardiomegaly; Z20.828 Contact with and (suspected) exposure to other viral communicable diseases; Z51.5 Encounter for palliative care; E66.9 Obesity, unspecified; J32.9 Chronic sinusitis, unspecified; Z79.899 Other long term (current) drug therapy; Z90.89 Acquired absence of other organs
CPT/HCPCS: 36415; 71045; 71046; 80048; 80053; 80305-QW; 83735; 83880; 84443; 84484; 85025; 85379; 85610; 85730; 87804; 87804-59; 93005; 96374; 99285-25; A9270-GY; J1650; J1940; U0002